=== PATIENT | male | born 1945 | race Native Hawaiian/Other Pacific Islander ===

== ENCOUNTER 2019-02-26 17:53 | Outpatient (CLI) | payer OTHER, BC ==
[2019-02-26 18:12] LABS: PLATELET COUNT 241 K/uL (142-355)
== END 2019-02-26 21:10 | disposition home or self-care (01) ==
LOC: LAB 17:53
PROVIDERS: Internal Medicine
DX: Z12.5 Encounter for screening for malignant neoplasm of prostate (principal); Z13.220 Encounter for screening for lipoid disorders; R53.83 Other fatigue; E78.00 Pure hypercholesterolemia, unspecified
CPT/HCPCS: 80061; 84154; 85027

== ENCOUNTER 2019-03-05 14:58 | Outpatient (CLI) | payer OTHER, BC ==
[2019-03-05 15:49] LABS: POTASSIUM 3.8 mmol/L (3.6-5.2)
== END 2019-03-05 23:31 | disposition home or self-care (01) ==
LOC: LABW 14:58
PROVIDERS: Internal Medicine
DX: R53.83 Other fatigue (principal); E55.9 Vitamin D deficiency, unspecified
CPT/HCPCS: 36415; 80053; 82306; 84443

== ENCOUNTER 2021-10-13 12:33 | Outpatient (CLI) | payer BC, OTHER ==
[~2021-10-13] VITALS: Ht 172.7 cm; Wt 83.5 kg
[2021-10-13 13:54] LABS: PLATELET COUNT 108 K/uL (142-355)
[2021-10-13 14:28] LABS: POTASSIUM 3.7 mmol/L (3.6-5.2)
== END 2021-10-13 19:13 | disposition home or self-care (01) ==
LOC: INF 12:33
PROVIDERS: ATTEND Student in an Organized Health Care Education/Training Program
DX: U07.1 COVID-19 (principal); Z23 Encounter for immunization
CPT/HCPCS: 36591; 80053; 85027; 96365; Q0247